=== PATIENT | male | born 1995 | race Caucasian/White ===

== ENCOUNTER 2022-08-31 13:59 | Inpatient (IN) | payer MEDICAID, OTHER ==
[~2022-08-31] VITALS: Ht 177.8 cm; Wt 73.5 kg
[2022-08-31 17:38] LABS: COVID AG,FIA SOURCE NASOPHARYNGEAL
[2022-08-31 17:39] LABS: BASOPHILS % (AUTO) 0.4 % (0.0-2.0); HEMATOCRIT 40.2 % (41-53); HEMOGLOBIN 13.3 g/dL (13.5-17.5); LYMPHOCYTES # (AUTO) 1.9 K/uL (1.0-4.8); LYMPHOCYTES % (AUTO) 28.4 % (22.0-44.0); MEAN CORPUSCULAR HEMOGLOBIN 29.6 pg (26.0-34.0); MEAN CORPUSCULAR HGB CONC 33.1 G/dL (31.0-37.0); MEAN CORPUSCULAR VOLUME 89 fL (80-100); MONOCYTES # (AUTO) 0.7 K/uL (0.1-1.0); MONOCYTES % (AUTO) 11.1 % (2.0-9.0); NEUTROPHILS # (AUTO) 3.9 K/uL (1.8-7.7); NEUTROPHILS % (AUTO) 59.1 % (40.0-70.0); PLATELET COUNT (AUTO) 338 K/uL (150-450); RED CELL DISTRIBUTION WIDTH 13.3 % (11.5-14.5)
[2022-08-31 17:52] LABS: ANION GAP 12 mmol/L (8-16); CALCIUM, TOTAL 9.2 mg/dL (8.8-10.5); CARBON DIOXIDE 24 mmol/L (22-29); CHLORIDE 103 mmol/L (98-107); CREATININE 0.77 mg/dL (0.60-1.30); GLOMERULAR FILTR. RATE CALC > 60 mL/min (>60); GLUCOSE,RANDOM 92 mg/dL (70-110); POTASSIUM 3.5 mmol/L (3.5-5.1); SODIUM SERUM 139 mmol/L (136-145); UREA NITROGEN, BLOOD 13 mg/dL (7-18)
[2022-08-31 18:06] LABS: ALANINE AMINOTRANSFERASE 43 U/L (12-78); ALBUMIN 3.6 g/dL (3.4-5.0); ALKALINE PHOSPHATASE 71 U/L (46-116); ASPARTATE AMINOTRANSFERASE 38 U/L (15-37); BILIRUBIN,TOTAL 0.4 mg/dL (0.1-1.0); THYROID STIMULATING HORMONE 1.64 uIU/mL (0.36-3.74); TOTAL PROTEIN, SERUM 7.2 g/dL (6.4-8.2)
[2022-08-31 18:55] LABS: APPEARANCE,URINE CLEAR (CLEAR); BILIRUBIN,URINE NEGATIVE (NEGATIVE); GLUCOSE, URINE (UA) NEGATIVE (NEGATIVE); KETONES,URINE NEGATIVE (NEGATIVE); LEUKOCYTE ESTERASE ,URINE NEGATIVE (NEGATIVE); NITRATE,URINE NEGATIVE (NEGATIVE); OCCULT BLOOD,URINE NEGATIVE (NEGATIVE); PROTEIN,URINE NEGATIVE (NEGATIVE); SPECIFIC GRAVITIY, URINE 1.015 (1.003-1.030); UROBILINOGEN,URINE <=1.0 mg/dL (<=1.0)
[2022-08-31 19:19] LABS: AMPHET/METH SCREEN,URINE POSITIVE (NEGATIVE); BARBITURATE SCREEN, URINE NEGATIVE (NEGATIVE); BENZODIAZEPINES SCREEN,URINE NEGATIVE (NEGATIVE); CANNABINOID SCREEN,URINE NEGATIVE (NEGATIVE); COCAINE SCREEN,URINE NEGATIVE (NEGATIVE); METHADONE SCREEN, URINE NEGATIVE (NEGATIVE); OPIATE SCREEN,URINE NEGATIVE (NEGATIVE); PHENCYCLIDINE SCREEN,URINE NEGATIVE (NEGATIVE)
[2022-09-01 04:58] VITALS: BP 109/74
[2022-09-01] MEDS ORDERED: INFLUENZA VIRUS VACCINE QVS 2022-23 (6MO+)/PF 60 MCG/0.5 ML SYRINGE IM. ONE (06:00)
[2022-09-01 08:45] VITALS: BP 114/73
[2022-09-01] MEDS: RisperiDONE 1 MG TABLET PO SCH ×2 (11:50→20:11)
[2022-09-01] MEDS ORDERED: ONDANSETRON HCL 4 MG TABLET PO PRN (16:45)
[2022-09-01] MEDS ORDERED: LOPERAMIDE HCL 2 MG CAPSULE PO PRN (16:45)
[2022-09-01] MEDS ORDERED: IBUPROFEN 400 MG TABLET PO PRN (16:45)
[2022-09-01] MEDS ORDERED: MAG HYDROX/AL HYDROX/SIMETH ES 30 ML SUSPENSION UDCUP PO PRN (16:45)
[2022-09-01] MEDS ORDERED: GuaiFENesin/D-METHORPHAN [SUGAR-FREE] 200-20MG/10 ML SYRUP UDCUP PO PRN (16:45)
[2022-09-01] MEDS ORDERED: ALBUTEROL SULFATE HFA 90 MCG/PUFF 8 GM INHALER IH PRN (16:45)
[2022-09-01] MEDS ORDERED: CloNIDine HCL 0.1 MG TABLET PO PRN (16:45)
[2022-09-01] MEDS ORDERED: ACETAMINOPHEN 325 MG TABLET PO PRN (16:45)
[2022-09-01] MEDS ORDERED: DOCUSATE SODIUM 100 MG CAPSULE PO PRN (16:45)
[2022-09-01] MEDS ORDERED: PETROLATUM,WHITE 28 GM JELLY TP PRN (16:45)
[2022-09-01] MEDS ORDERED: MAGNESIUM HYDROXIDE SUSPENSION 30 ML UDCUP PO PRN (16:45)
[2022-09-01] MEDS ORDERED: NICOTINE 14 MG/24 HOUR PATCH TD PRN (16:45)
[2022-09-01 21:05] VITALS: BP 123/76
[2022-09-02 08:30] VITALS: BP 110/53
[2022-09-02] MEDS: RisperiDONE 1 MG TABLET PO SCH ×2 (08:54→21:12)
[2022-09-03 01:10] VITALS: BP 120/70
[2022-09-03 08:32] VITALS: BP 128/76
[2022-09-03] MEDS: RisperiDONE 1 MG TABLET PO SCH (08:51)
[2022-09-03] MEDS: RisperiDONE 2 MG TABLET PO SCH ×2 (09:00→20:32)
[2022-09-03] MEDS ORDERED: RisperiDONE 1 MG TABLET PO ONE (09:45)
[2022-09-03 20:36] VITALS: BP 133/74
[2022-09-04 08:25] VITALS: BP 119/69
[2022-09-04] MEDS: RisperiDONE 2 MG TABLET PO SCH ×2 (08:33→20:32)
[2022-09-04 20:38] VITALS: BP 115/67
[2022-09-04] MEDS: ZOLPIDEM TARTRATE 10 MG TABLET PO PRN (21:11)
[2022-09-05 08:41] VITALS: BP 118/73
[2022-09-05] MEDS: RisperiDONE 2 MG TABLET PO SCH ×2 (08:49→20:28)
[2022-09-05 20:24] VITALS: BP 120/74
[2022-09-06] MEDS: RisperiDONE 2 MG TABLET PO SCH ×2 (08:35→20:20)
[2022-09-06 09:22] VITALS: BP 135/71
[2022-09-06 11:46] LABS: GLUCOMETER DEV NAME(LOC) POC.BV
[2022-09-06 20:32] VITALS: BP 138/62
[2022-09-07] MEDS: LORazepam 2 MG TABLET PO PRN ×2 (06:52→17:21)
[2022-09-07 08:48] VITALS: BP 119/64
[2022-09-07] MEDS: RisperiDONE 2 MG TABLET PO SCH ×2 (09:46→20:32)
[2022-09-07 20:17] VITALS: BP 118/64
[2022-09-07] MEDS: ZOLPIDEM TARTRATE 10 MG TABLET PO PRN (20:32)
[2022-09-08] MEDS: RisperiDONE 2 MG TABLET PO SCH ×2 (09:09→20:14)
[2022-09-08] MEDS: MULTIVITAMINS WITH MINERALS, THERAPEUTIC TABLET PO SCH (09:10)
[2022-09-08 09:46] VITALS: BP 117/77
[2022-09-08 20:08] VITALS: BP 114/78
[2022-09-08] MEDS: ZOLPIDEM TARTRATE 10 MG TABLET PO PRN (20:14)
[2022-09-09 09:23] VITALS: BP 92/61
[2022-09-09] MEDS: MULTIVITAMINS WITH MINERALS, THERAPEUTIC TABLET PO SCH (10:03)
[2022-09-09] MEDS: RisperiDONE 2 MG TABLET PO SCH ×2 (10:04→19:53)
[2022-09-09 20:00] VITALS: BP 97/79
[2022-09-10] MEDS: RisperiDONE 2 MG TABLET PO SCH ×2 (08:40→20:34)
[2022-09-10] MEDS: MULTIVITAMINS WITH MINERALS, THERAPEUTIC TABLET PO SCH (08:40)
[2022-09-10 20:44] VITALS: BP 138/72
[2022-09-11] MEDS: ZOLPIDEM TARTRATE 10 MG TABLET PO PRN (01:42)
[2022-09-11 09:48] VITALS: BP 120/80
[2022-09-11] MEDS: RisperiDONE 2 MG TABLET PO SCH ×2 (09:56→20:37)
[2022-09-11] MEDS: MULTIVITAMINS WITH MINERALS, THERAPEUTIC TABLET PO SCH (09:56)
[2022-09-11 20:38] VITALS: BP 131/72
[2022-09-12 08:20] VITALS: BP 137/77
[2022-09-12] MEDS: RisperiDONE 2 MG TABLET PO SCH ×2 (08:52→20:30)
[2022-09-12] MEDS: MULTIVITAMINS WITH MINERALS, THERAPEUTIC TABLET PO SCH (08:52)
[2022-09-12 20:24] VITALS: BP 111/74
[2022-09-12] MEDS: ZOLPIDEM TARTRATE 10 MG TABLET PO PRN (22:53)
[2022-09-13] MEDS: MULTIVITAMINS WITH MINERALS, THERAPEUTIC TABLET PO SCH (08:14)
[2022-09-13] MEDS: RisperiDONE 2 MG TABLET PO SCH ×2 (08:14→20:36)
[2022-09-13 10:51] LABS: GLUCOMETER DEV NAME(LOC) POC.BV
[2022-09-13] MEDS: LORazepam 2 MG TABLET PO PRN (12:30)
[2022-09-13] MEDS: HALOPERIDOL 5 MG TABLET PO PRN (12:44)
[2022-09-13] MEDS ORDERED: LORazepam 2 MG/ML VIAL ONE (12:58)
[2022-09-13] MEDS ORDERED: DiphenhydrAMINE HCL 50 MG/ML VIAL IM ONE (13:00)
[2022-09-13] MEDS ORDERED: LORazepam 2 MG/ML VIAL IM ONE (13:00)
[2022-09-13] MEDS ORDERED: HALOPERIDOL LACTATE 5 MG/ML VIAL IM ONE (13:00)
[2022-09-14] MEDS: RisperiDONE 2 MG TABLET PO SCH ×2 (08:27→20:18)
[2022-09-14] MEDS: MULTIVITAMINS WITH MINERALS, THERAPEUTIC TABLET PO SCH (08:27)
[2022-09-14] MEDS: LORazepam 2 MG TABLET PO PRN ×2 (08:27→16:05)
[2022-09-14] MEDS: HALOPERIDOL 5 MG TABLET PO PRN (16:13)
[2022-09-15 08:10] VITALS: BP 116/72
[2022-09-15] MEDS: LORazepam 2 MG TABLET PO PRN ×2 (08:10→20:12)
[2022-09-15] MEDS: MULTIVITAMINS WITH MINERALS, THERAPEUTIC TABLET PO SCH (08:10)
[2022-09-15] MEDS: RisperiDONE 2 MG TABLET PO SCH ×2 (08:10→20:45)
[2022-09-15 20:30] VITALS: BP 136/82
[2022-09-16 09:01] VITALS: BP 133/90
[2022-09-16] MEDS: MULTIVITAMINS WITH MINERALS, THERAPEUTIC TABLET PO SCH (09:03)
[2022-09-16] MEDS: RisperiDONE 2 MG TABLET PO SCH ×2 (09:03→22:12)
[2022-09-16] MEDS: LORazepam 2 MG TABLET PO PRN (09:49)
[2022-09-16] MEDS: HALOPERIDOL 5 MG TABLET PO PRN (11:21)
[2022-09-16 20:00] VITALS: BP 124/89
[2022-09-17] MEDS: MULTIVITAMINS WITH MINERALS, THERAPEUTIC TABLET PO SCH (09:48)
[2022-09-17] MEDS: RisperiDONE 2 MG TABLET PO SCH ×2 (09:48→20:33)
[2022-09-17 10:05] VITALS: BP 116/60
[2022-09-17] MEDS: HALOPERIDOL 5 MG TABLET PO PRN (16:54)
[2022-09-17 20:39] VITALS: BP 144/78
[2022-09-18] MEDS: MULTIVITAMINS WITH MINERALS, THERAPEUTIC TABLET PO SCH (08:03)
[2022-09-18] MEDS: RisperiDONE 2 MG TABLET PO SCH ×2 (08:03→20:48)
[2022-09-18 09:16] VITALS: BP 130/65
[2022-09-18] MEDS: HALOPERIDOL 5 MG TABLET PO PRN ×2 (13:54→17:59)
[2022-09-18 20:42] VITALS: BP 113/65
[2022-09-19] MEDS: MULTIVITAMINS WITH MINERALS, THERAPEUTIC TABLET PO SCH (08:35)
[2022-09-19] MEDS: RisperiDONE 2 MG TABLET PO SCH ×2 (08:35→20:30)
[2022-09-19] MEDS: HALOPERIDOL 5 MG TABLET PO PRN ×2 (08:35→16:32)
[2022-09-19 08:42] VITALS: BP 127/82
[2022-09-19] MEDS ORDERED: LORazepam 2 MG/ML VIAL IM ONE (09:00)
[2022-09-19] MEDS ORDERED: HALOPERIDOL LACTATE 5 MG/ML VIAL IM ONE (09:00)
[2022-09-19] MEDS ORDERED: DiphenhydrAMINE HCL 50 MG/ML VIAL IM ONE (09:00)
[2022-09-19 11:13] VITALS: BP 94/67
[2022-09-20] MEDS: MULTIVITAMINS WITH MINERALS, THERAPEUTIC TABLET PO SCH (08:34)
[2022-09-20] MEDS: RisperiDONE 2 MG TABLET PO SCH ×2 (08:34→20:27)
[2022-09-20] MEDS ORDERED: LORazepam 2 MG/ML VIAL ONE (12:41)
[2022-09-20] MEDS ORDERED: DiphenhydrAMINE HCL 50 MG/ML VIAL ONE (12:41)
[2022-09-20] MEDS ORDERED: HALOPERIDOL LACTATE 5 MG/ML VIAL ONE (12:41)
[2022-09-20] MEDS ORDERED: DiphenhydrAMINE HCL 50 MG/ML VIAL IM ONE (12:45)
[2022-09-20] MEDS ORDERED: LORazepam 2 MG/ML VIAL IM ONE (12:45)
[2022-09-20] MEDS ORDERED: HALOPERIDOL LACTATE 5 MG/ML VIAL IM ONE (12:45)
[2022-09-20 20:15] VITALS: BP 104/64
[2022-09-21] MEDS: HALOPERIDOL 5 MG TABLET PO PRN ×2 (07:43→16:04)
[2022-09-21] MEDS ORDERED: HALOPERIDOL LACTATE 5 MG/ML VIAL ONE (08:03)
[2022-09-21] MEDS ORDERED: LORazepam 2 MG/ML VIAL ONE (08:04)
[2022-09-21] MEDS: RisperiDONE 2 MG TABLET PO SCH ×2 (08:12→20:13)
[2022-09-21] MEDS ORDERED: LORazepam 2 MG/ML VIAL IM ONE (08:15)
[2022-09-21] MEDS ORDERED: HALOPERIDOL LACTATE 5 MG/ML VIAL IM ONE (08:15)
[2022-09-21] MEDS: MULTIVITAMINS WITH MINERALS, THERAPEUTIC TABLET PO SCH (08:49)
[2022-09-21] MEDS: QUEtiapine FUMARATE 25 MG TABLET PO PRN (12:16)
[2022-09-21 12:56] LABS: GLUCOMETER DEV NAME(LOC) POC.BV
[2022-09-21 17:41] LABS: GLUCOMETER DEV NAME(LOC) POC.BV
[2022-09-21 20:08] VITALS: BP 104/70
[2022-09-22 08:05] VITALS: BP 112/85
[2022-09-22] MEDS: HALOPERIDOL 5 MG TABLET PO PRN ×3 (08:09→16:33)
[2022-09-22] MEDS: RisperiDONE 2 MG TABLET PO SCH ×2 (08:09→20:32)
[2022-09-22] MEDS: MULTIVITAMINS WITH MINERALS, THERAPEUTIC TABLET PO SCH (08:09)
[2022-09-22] MEDS: QUEtiapine FUMARATE 25 MG TABLET PO PRN ×3 (08:09→18:26)
[2022-09-23 08:05] VITALS: BP 136/67
[2022-09-23] MEDS: HALOPERIDOL 5 MG TABLET PO PRN (08:18)
[2022-09-23] MEDS: RisperiDONE 2 MG TABLET PO SCH ×2 (08:18→21:00)
[2022-09-23] MEDS: MULTIVITAMINS WITH MINERALS, THERAPEUTIC TABLET PO SCH (08:19)
[2022-09-23] MEDS: QUEtiapine FUMARATE 25 MG TABLET PO PRN (10:53)
[2022-09-23] MEDS ORDERED: LORazepam 2 MG/ML VIAL ONE (11:32)
[2022-09-23] MEDS ORDERED: HALOPERIDOL LACTATE 5 MG/ML VIAL ONE (11:32)
[2022-09-23] MEDS ORDERED: HALOPERIDOL LACTATE 5 MG/ML VIAL IM ONE (11:45)
[2022-09-23] MEDS ORDERED: LORazepam 2 MG/ML VIAL IM ONE (11:45)
[2022-09-24] MEDS: QUEtiapine FUMARATE 25 MG TABLET PO PRN ×2 (08:26→14:05)
[2022-09-24] MEDS: MULTIVITAMINS WITH MINERALS, THERAPEUTIC TABLET PO SCH (08:26)
[2022-09-24] MEDS: HALOPERIDOL 5 MG TABLET PO PRN ×2 (08:26→14:04)
[2022-09-24] MEDS: RisperiDONE 2 MG TABLET PO SCH (09:38)
[2022-09-24] MEDS ORDERED: LORazepam 2 MG/ML VIAL ONE (14:22)
[2022-09-24] MEDS ORDERED: HALOPERIDOL LACTATE 5 MG/ML VIAL ONE (14:23)
[2022-09-24] MEDS ORDERED: DiphenhydrAMINE HCL 50 MG/ML VIAL ONE (14:23)
[2022-09-24] MEDS ORDERED: HALOPERIDOL LACTATE 5 MG/ML VIAL IM ONE (14:45)
[2022-09-24] MEDS ORDERED: DiphenhydrAMINE HCL 50 MG/ML VIAL IM ONE (14:45)
[2022-09-24] MEDS ORDERED: LORazepam 2 MG/ML VIAL IM ONE (14:45)
[2022-09-24 20:05] VITALS: BP 109/68
[2022-09-24] MEDS: RisperiDONE 3 MG TABLET PO SCH (20:18)
[2022-09-25] MEDS: HALOPERIDOL 5 MG TABLET PO PRN ×2 (07:49→12:56)
[2022-09-25] MEDS: QUEtiapine FUMARATE 25 MG TABLET PO PRN ×2 (07:50→16:49)
[2022-09-25] MEDS: MULTIVITAMINS WITH MINERALS, THERAPEUTIC TABLET PO SCH (08:10)
[2022-09-25] MEDS: RisperiDONE 3 MG TABLET PO SCH ×2 (08:10→20:13)
[2022-09-25 20:15] VITALS: BP 137/86
[2022-09-26] MEDS: QUEtiapine FUMARATE 25 MG TABLET PO PRN ×3 (07:17→20:18)
[2022-09-26] MEDS: HALOPERIDOL 5 MG TABLET PO PRN ×3 (07:17→17:02)
[2022-09-26] MEDS ORDERED: LORazepam 2 MG/ML VIAL ONE (07:28)
[2022-09-26] MEDS ORDERED: HALOPERIDOL LACTATE 5 MG/ML VIAL ONE (07:29)
[2022-09-26] MEDS ORDERED: DiphenhydrAMINE HCL 50 MG/ML VIAL ONE (07:29)
[2022-09-26] MEDS ORDERED: HALOPERIDOL LACTATE 5 MG/ML VIAL IM ONE (07:45)
[2022-09-26] MEDS ORDERED: LORazepam 2 MG/ML VIAL IM ONE (07:45)
[2022-09-26] MEDS ORDERED: DiphenhydrAMINE HCL 50 MG/ML VIAL IM ONE (07:45)
[2022-09-26] MEDS: RisperiDONE 3 MG TABLET PO SCH (08:54)
[2022-09-26] MEDS: MULTIVITAMINS WITH MINERALS, THERAPEUTIC TABLET PO SCH (08:54)
[2022-09-26] MEDS: DIVALPROEX SODIUM 500 MG ER TABLET PO SCH ×2 (10:15→17:02)
[2022-09-26 20:17] VITALS: BP 103/74
[2022-09-26] MEDS: RisperiDONE 4 MG TABLET PO SCH (20:18)
[2022-09-27] MEDS: DIVALPROEX SODIUM 500 MG ER TABLET PO SCH ×2 (08:36→16:29)
[2022-09-27] MEDS: HALOPERIDOL 5 MG TABLET PO PRN ×3 (08:36→22:47)
[2022-09-27] MEDS: MULTIVITAMINS WITH MINERALS, THERAPEUTIC TABLET PO SCH (08:36)
[2022-09-27] MEDS: QUEtiapine FUMARATE 25 MG TABLET PO PRN ×2 (08:36→22:47)
[2022-09-27] MEDS: RisperiDONE 4 MG TABLET PO SCH ×2 (08:36→21:22)
[2022-09-27 10:01] VITALS: BP 116/71
[2022-09-27 20:04] VITALS: BP 108/67
[2022-09-28] MEDS: QUEtiapine FUMARATE 25 MG TABLET PO PRN ×2 (06:55→08:22)
[2022-09-28] MEDS: HALOPERIDOL 5 MG TABLET PO PRN ×2 (06:55→08:22)
[2022-09-28] MEDS: DIVALPROEX SODIUM 500 MG ER TABLET PO SCH ×2 (08:20→18:20)
[2022-09-28] MEDS: MULTIVITAMINS WITH MINERALS, THERAPEUTIC TABLET PO SCH (08:20)
[2022-09-28] MEDS: RisperiDONE 4 MG TABLET PO SCH ×2 (08:20→20:34)
[2022-09-28 20:11] LABS: GLUCOMETER DEV NAME(LOC) POC.BV
[2022-09-28 20:19] VITALS: BP 130/98
[2022-09-29] MEDS: RisperiDONE 4 MG TABLET PO SCH ×2 (08:01→20:44)
[2022-09-29] MEDS: MULTIVITAMINS WITH MINERALS, THERAPEUTIC TABLET PO SCH (08:01)
[2022-09-29] MEDS: DIVALPROEX SODIUM 500 MG ER TABLET PO SCH ×2 (08:01→17:13)
[2022-09-29] MEDS: QUEtiapine FUMARATE 25 MG TABLET PO PRN ×3 (08:02→20:45)
[2022-09-29] MEDS: HALOPERIDOL 5 MG TABLET PO PRN ×3 (08:02→17:13)
[2022-09-29] MEDS ORDERED: ChlorproMAZINE HCL 50 MG/2 ML AMP ONE (15:22)
[2022-09-29] MEDS ORDERED: LORazepam 2 MG/ML VIAL ONE (15:23)
[2022-09-29] MEDS ORDERED: DiphenhydrAMINE HCL 50 MG/ML VIAL ONE (15:23)
[2022-09-29] MEDS ORDERED: ChlorproMAZINE HCL 50 MG/2 ML AMP IM ONE (15:30)
[2022-09-29] MEDS ORDERED: DiphenhydrAMINE HCL 50 MG/ML VIAL IM ONE (15:30)
[2022-09-29] MEDS ORDERED: LORazepam 2 MG/ML VIAL IM ONE (15:30)
[2022-09-29 20:06] VITALS: BP 115/75
[2022-09-30] MEDS: HALOPERIDOL 5 MG TABLET PO PRN (07:48)
[2022-09-30] MEDS: QUEtiapine FUMARATE 25 MG TABLET PO PRN (07:48)
[2022-09-30] MEDS: DIVALPROEX SODIUM 500 MG ER TABLET PO SCH ×2 (08:09→16:05)
[2022-09-30] MEDS: RisperiDONE 4 MG TABLET PO SCH ×2 (08:10→20:54)
[2022-09-30] MEDS: MULTIVITAMINS WITH MINERALS, THERAPEUTIC TABLET PO SCH (08:10)
[2022-09-30] MEDS ORDERED: HALOPERIDOL LACTATE 5 MG/ML VIAL IM ONE (08:15)
[2022-09-30] MEDS ORDERED: LORazepam 2 MG/ML VIAL IM ONE (08:15)
[2022-09-30] MEDS ORDERED: DiphenhydrAMINE HCL 50 MG/ML VIAL IM ONE (08:15)
[2022-09-30 20:06] VITALS: BP 118/70
[2022-10-01 08:15] VITALS: BP 117/76
[2022-10-01] MEDS: RisperiDONE 4 MG TABLET PO SCH ×2 (08:21→20:20)
[2022-10-01] MEDS: QUEtiapine FUMARATE 25 MG TABLET PO PRN ×2 (08:22→17:09)
[2022-10-01] MEDS: HALOPERIDOL 5 MG TABLET PO PRN ×2 (08:22→17:10)
[2022-10-01] MEDS: DIVALPROEX SODIUM 500 MG ER TABLET PO SCH ×2 (08:22→17:09)
[2022-10-01] MEDS: MULTIVITAMINS WITH MINERALS, THERAPEUTIC TABLET PO SCH (08:22)
[2022-10-01] MEDS ORDERED: HALOPERIDOL LACTATE 5 MG/ML VIAL IM ONE (09:00)
[2022-10-01] MEDS ORDERED: LORazepam 2 MG/ML VIAL IM ONE (09:00)
[2022-10-01] MEDS ORDERED: DiphenhydrAMINE HCL 50 MG/ML VIAL IM ONE (09:00)
[2022-10-01 20:07] VITALS: BP 120/70
[2022-10-02] MEDS: MULTIVITAMINS WITH MINERALS, THERAPEUTIC TABLET PO SCH (08:09)
[2022-10-02] MEDS: HALOPERIDOL 5 MG TABLET PO PRN (08:09)
[2022-10-02] MEDS: RisperiDONE 4 MG TABLET PO SCH ×2 (08:09→20:16)
[2022-10-02] MEDS: DIVALPROEX SODIUM 500 MG ER TABLET PO SCH ×2 (08:09→16:16)
[2022-10-02] MEDS: QUEtiapine FUMARATE 25 MG TABLET PO PRN (08:09)
[2022-10-02 08:49] VITALS: BP 138/88
[2022-10-02 20:17] VITALS: BP 133/78
[2022-10-03 08:33] VITALS: BP 107/73
[2022-10-03] MEDS: DIVALPROEX SODIUM 500 MG ER TABLET PO SCH ×2 (08:44→17:10)
[2022-10-03] MEDS: HALOPERIDOL 5 MG TABLET PO PRN ×2 (08:44→17:10)
[2022-10-03] MEDS: RisperiDONE 4 MG TABLET PO SCH ×2 (08:44→20:25)
[2022-10-03] MEDS: MULTIVITAMINS WITH MINERALS, THERAPEUTIC TABLET PO SCH (08:44)
[2022-10-03] MEDS: QUEtiapine FUMARATE 25 MG TABLET PO PRN ×2 (08:44→17:10)
[2022-10-03 20:14] VITALS: BP 143/86
[2022-10-04] MEDS: RisperiDONE 4 MG TABLET PO SCH (08:02)
[2022-10-04] MEDS: DIVALPROEX SODIUM 500 MG ER TABLET PO SCH (08:03)
[2022-10-04] MEDS: MULTIVITAMINS WITH MINERALS, THERAPEUTIC TABLET PO SCH (08:03)
[2022-10-04 08:26] VITALS: BP 137/85
[2022-10-04] MEDS ORDERED: DIVA500T69 PO (09:46)
[2022-10-04] MEDS ORDERED: RISP4TAB73 PO (09:46)
== END 2022-10-04 12:30 | disposition home or self-care (01) | DRG 750 ==
LOC: EDBD 13:59 → EMS 13:59 → B2S 09-01 00:40 → B3A 09-19 11:21
PROVIDERS: ADMIT Psychiatry & Neurology Psychiatry; ATTEND Psychiatry & Neurology Psychiatry
DX: F20.0 Paranoid schizophrenia (principal); D64.9 Anemia, unspecified; F10.10 Alcohol abuse, uncomplicated; Z20.822 Contact with and (suspected) exposure to COVID-19; F15.10 Other stimulant abuse, uncomplicated; G47.00 Insomnia, unspecified; Z59.00 Homelessness unspecified; Z79.899 Other long term (current) drug therapy
CPT/HCPCS: 80053; 80307; 81003; 84443; 85025; 87081; 99285; G0480; J1200; J1630; J2060; J3230

== ENCOUNTER 2023-12-22 20:30 | Inpatient (IN) | payer MEDICAID ==
[~2023-12-22] VITALS: Ht 175.3 cm; Wt 79.9 kg
[~2023-12-22 20:30] MED LIST: BENZ-247 PO; DIVA500T69 PO; HALO5TAB2 PO; RISP4TAB94 PO
[2023-12-22 21:40] LABS: ANION GAP 19 mmol/L (8-16); CALCIUM, TOTAL 9.5 mg/dL (8.8-10.5); CARBON DIOXIDE 15 mmol/L (22-29); CHLORIDE 105 mmol/L (98-107); CREATININE 1.19 mg/dL (0.60-1.30); GLOMERULAR FILTR. RATE CALC > 60 mL/min (>60); GLUCOSE,RANDOM 88 mg/dL (70-110); SODIUM SERUM 139 mmol/L (136-145); UREA NITROGEN, BLOOD 21 mg/dL (7-18)
[2023-12-22 21:42] LABS: BASOPHILS % (AUTO) 0.5 % (0.0-2.0); EOSINOPHILS % (AUTO) 0.3 % (1.0-6.0); HEMATOCRIT 41.9 % (41-53); HEMOGLOBIN 14.6 g/dL (13.5-17.5); LYMPHOCYTES # (AUTO) 2.5 K/uL (1.0-4.8); MEAN CORPUSCULAR HEMOGLOBIN 30.5 pg (26.0-34.0); MEAN CORPUSCULAR HGB CONC 34.7 G/dL (31.0-37.0); MEAN CORPUSCULAR VOLUME 88 fL (80-100); MONOCYTES # (AUTO) 1.2 K/uL (0.1-1.0); MONOCYTES % (AUTO) 12.6 % (2.0-9.0); NEUTROPHILS # (AUTO) 6.1 K/uL (1.8-7.7); NEUTROPHILS % (AUTO) 61.6 % (40.0-70.0); PLATELET COUNT (AUTO) 351 K/uL (150-450); RED BLOOD CELL COUNT(AUTO) 4.78 MIL/uL (4.50-5.90); WHITE BLOOD COUNT (AUTO) 9.9 K/uL (4.5-11.0)
[2023-12-22 21:48] LABS: ALCOHOL, BLOOD (SERUM) < 3 mg/dL (0-10)
[2023-12-22 21:49] LABS: POTASSIUM 2.9 mmol/L (3.5-5.1)
[2023-12-22] MEDS: POTASSIUM CHLORIDE 20 MEQ ER TABLET PO ONE (22:03)
[2023-12-22 23:55] LABS: COVID AG,FIA SOURCE NASAL SWAB
[2023-12-23 00:14] LABS: SARS-COV2 (COVID) ANTIGEN,FIA Negative (Negative)
[2023-12-23] MEDS: ZIPRASIDONE MESYLATE 20 MG/VIAL IM ONE (00:26)
[2023-12-23] MEDS: DiphenhydrAMINE HCL 50 MG/ML VIAL IM ONE ×2 (00:26→18:51)
[2023-12-23] MEDS: LORazepam 2 MG/ML VIAL IM ONE ×2 (00:26→18:54)
[2023-12-23] MEDS ORDERED: ZOLPIDEM TARTRATE 10 MG TABLET PO PRN (10:30)
[2023-12-23] MEDS: LORazepam 2 MG TABLET PO PRN (16:00)
[2023-12-23] MEDS: HALOPERIDOL 5 MG TABLET PO PRN (16:00)
[2023-12-23] MEDS: HALOPERIDOL LACTATE 5 MG/ML VIAL IM ONE (18:51)
[2023-12-24 01:06] VITALS: BP 118/52; PULSE 100; RESP 18; TEMP 97.5; O2SAT 100
[2023-12-24 08:17] VITALS: RESP 15
[2023-12-24] MEDS: RisperiDONE 4 MG TABLET PO SCH (09:39)
[2023-12-24] MEDS: BENZTROPINE MESYLATE 1 MG TABLET PO SCH (09:39)
[2023-12-24] MEDS: DIVALPROEX SODIUM 500 MG ER TABLET PO SCH (09:39)
[2023-12-24 20:29] VITALS: BP 113/71; PULSE 100; TEMP 97.9; O2SAT 96
[2023-12-25 08:18] LABS: HEMOGLOBIN A1C 5.2 % (3.8-5.6)
[2023-12-25 08:25] LABS: CHOL/HDL RATIO 2.9 (4.2-7.3); FREE T4 (FREE THYROXINE) 1.24 ng/dL (0.76-1.46); THYROID STIMULATING HORMONE 1.78 uIU/mL (0.36-3.74)
[2023-12-25 08:48] VITALS: BP 105/64; PULSE 78; RESP 16; TEMP 97.6; O2SAT 98
[2023-12-25 20:18] VITALS: BP 109/69; PULSE 109; TEMP 98; O2SAT 98
[2023-12-26 08:32] VITALS: BP 101/60; PULSE 76; RESP 17; TEMP 98.4; O2SAT 96
[2023-12-26 20:45] VITALS: BP 119/71; PULSE 95; TEMP 98.4; O2SAT 97
[2023-12-27 08:27] VITALS: BP 116/60; PULSE 87; RESP 17; TEMP 98; O2SAT 98
[2023-12-27] MEDS ORDERED: RISP4TAB94 PO (11:12)
[2023-12-27] MEDS ORDERED: DIVA-153 PO (11:12)
[2023-12-27] MEDS ORDERED: BENZ-247 PO (11:12)
== END 2023-12-27 13:30 | disposition home or self-care (01) | DRG 750 ==
LOC: EMS 20:37 → B3A 12-23 17:57
PROVIDERS: ADMIT Psychiatry & Neurology Psychiatry; ATTEND Psychiatry & Neurology Psychiatry
PROC: GZHZZZZ Group Psychotherapy (ICD-10-PCS; principal; 2023-12-25)
DX: F20.0 Paranoid schizophrenia (principal); E87.6 Hypokalemia; F10.10 Alcohol abuse, uncomplicated; F14.90 Cocaine use, unspecified, uncomplicated; Z20.822 Contact with and (suspected) exposure to COVID-19; R79.89 Other specified abnormal findings of blood chemistry; Z79.899 Other long term (current) drug therapy
CPT/HCPCS: 80048; 80061; 80164; 83036; 84132; 85025; 99285; G0480; J1200; J1630; J2060; J3486